=== PATIENT | female | born 1960 | race Caucasian/White ===

== ENCOUNTER → 2023-05-03 07:57 | Outpatient (REF) | payer BC, SELFPAY | LOC: MRI 3T 07:57 | PROVIDERS: ATTENDING PHYSICIAN Obstetrics & Gynecology; FAMILY PHYSICIAN Internal Medicine | DX: N60.19 Diffuse cystic mastopathy of unspecified breast (principal); Z80.3 Family history of malignant neoplasm of breast | CPT/HCPCS: 77049; A9585 ==

== ENCOUNTER → 2023-09-29 06:58 | Outpatient (REF) | payer BC, SELFPAY | LOC: HWWDC 06:58 | PROVIDERS: ATTENDING PHYSICIAN Obstetrics & Gynecology; FAMILY PHYSICIAN Internal Medicine | DX: Z12.31 Encounter for screening mammogram for malignant neoplasm of breast (principal) | CPT/HCPCS: 77063; 77067 ==

== ENCOUNTER → 2023-12-28 10:47 | Outpatient (REF) | payer BC, SELFPAY | LOC: HWRAD 10:47 | PROVIDERS: ATTENDING PHYSICIAN Hospitalist; FAMILY PHYSICIAN Internal Medicine | DX: R19.09 Other intra-abdominal and pelvic swelling, mass and lump (principal) | CPT/HCPCS: 76882 ==

== ENCOUNTER 2024-04-26 06:19 | Day surgery (SDC) | payer BC, SELFPAY | END 2024-04-26 12:58 | disposition home or self-care (01) | LOC: GI 06:19 | PROVIDERS: ATTENDING PHYSICIAN Internal Medicine Gastroenterology; FAMILY PHYSICIAN Internal Medicine | DX: Z12.11 Encounter for screening for malignant neoplasm of colon (principal); K64.0 First degree hemorrhoids; Z86.0100 Personal history of colon polyps, unspecified | CPT/HCPCS: G0105 ==

== ENCOUNTER 2024-05-25 06:19 | Day surgery (SDC) | payer BC, SELFPAY ==
[2024-05-09 14:04] VITALS: BMI 24.1
[2024-05-25] VITALS (7 sets, daily range): BP systolic 108–128; BP diastolic 55–70; BMI 24.1
[2024-05-25] MEDS: NORMOSOL-R/PLASMALYTE-A 1000 IV (07:52)
[2024-05-25] MEDS: TYLENOL 1000 MG PO (07:55)
--- NOTE | 2024-05-25 08:24 | HP.FOC2 ---
Focused History & Physical
Chief Complaint
HPI:
Chief Complaint: Right inguinal hernia
HPI / Indication for Planned Procedure: This is a 64-year-old female with history of endometriosis and diagnostic laparoscopy who presents with a symptomatic right inguinal hernia. Will plan for a robotic right inguinal hernia repair with mesh.
Relevant Past Medical History: Other (Endometriosis, hypothyroidism)
Relevant Social History: Negative
Relevant Family History: Negative
Relevant Past Surgical History: Positive for (Diagnostic laparoscopy for endometriosis)
Review of Systems
Review of Pertinent Systems: All Systems Negative
Medication
See Medication form for detailed medications: Yes
Medication List (including Herbals & OTC):
diphenhydramine 25 mg-acetaminophen 500 mg tablet (Tylenol PM Extra Strength) 1 tab PO HS PRN Pain, Insomnia 05/18/24
levothyroxine 25 mcg tablet 25 mcg PO DAILY 05/18/24
Medications Reviewed: Yes
Allergies and Reactions
Patient has Allergies: No
Noted Allergies and Reactions:
Allergy/AdvReac Type Severity Reaction Status Date / Time
No Known Allergies Allergy Verified 05/25/24 07:24
Pertinent Physical Exam
All Other Systems: Negative
Head/Neck: Normal
Diagnosis / Assessment
This is a 64-year-old female with history of endometriosis and diagnostic laparoscopy who presents with a symptomatic right inguinal hernia.
Plan / Procedure
Will plan for a robotic right inguinal hernia repair with mesh.
Anesthesia/Sedation to be done by Anesthesia Provider: Yes
--- NOTE | 2024-05-25 08:25 | W.SUR.PREOP ---
Pre-Operative Surgical Note
-
I have examined this patient prior to the performance of the scheduled procedure.
The patient's condition is unchanged from the time of the current History and
Physical and the patient is able to undergo the scheduled procedure.
--- NOTE | 2024-05-25 10:54 | W.IMMPOSTOP ---
Surgical Immed Post Op Note
-
Primary Surgeon: Dung Treadwell MD
Assisting Surgeon: None
Pre-op Diagnosis: Right inguinal hernia
Post-op Diagnosis: Bilateral inguinal hernias
Procedure Performed: Robotic bilateral inguinal hernia repair with mesh (ABRAHAM approach)
Anesthesia Type: General
Specimen / Cultures: None
Estimated Blood Loss: 3 cc
Complications: None
Operative Findings: Bilateral indirect inguinal hernias as well as bilateral small femoral hernia defects. The round ligaments were divided at the level of the peritoneal reflection bilaterally. After achieving the critical view of the MPO, both
spaces were reinforced with large Bard 3D max uncoated polypropylene mesh.
--- NOTE | 2024-05-25 10:57 | OR.RPT ---
Operative Report
Operative Report
Patient Name: Geeta Ceron
: 1960
Date of Operation: 05/25/2024
Preoperative Diagnosis: Reducible Inguinal hernia, right
Postoperative Diagnosis: Bilateral reducible inguinal hernias
Procedure(s):
Robotic bilateral inguinal Hernia Repair with mesh, (ABRAHAM approach)
Surgeon(s):
Dr. Treadwell
Golf Caddy(s):
ANALY Sam
Anesthesia: General
Estimated Blood Loss: 3 cc
Urine Output: None
Drains/Lines/Implants: Large 3D Max Bard mid weight uncoated polypropylene mesh x 2
Specimens: None
Indication for surgery: The patient has a history of groin pain and noted on exam to have a right inguinal Hernia. Following review of therapeutic options they have elected to undergo a minimally invasive repair.
Operative Findings: Bilateral indirect inguinal hernias as well as bilateral small femoral hernia defects. The round ligaments were divided at the level of the peritoneal reflection bilaterally. After achieving the critical view of the MPO, both
spaces were reinforced with large Bard 3D max uncoated polypropylene mesh.
Details of the operation:
The patient was brought to the Operating Room and placed in the supine position with the arms tucked. IV antibiotics were infused and Venodyne stockings placed. Following uneventful induction of general endotracheal anesthesia, an orogastric tube
was placed. The abdomen was prepped and draped in the usual sterile fashion. The abdomen was entered using a Veress technique which required 1 pass, pneumoperitoneum to 15 mmHg was obtained without difficulty. An 8mm trochar was passed through the
abdominal wall roughly 20 cm cephalad to the inguinal canal. We then confirmed that no inadvertent injury was made while passing the trocar or Veress needle. We then placed two additional 8 mm ports in the left upper and right upper quadrants. We
then docked the robot with a Prograsper in the left hand port and monopolar scissors in the right. Bilateral indirect inguinal defects were identified immediately. We then began by creating a flap at the level of the ASIS laterally on the right
side working our way medially to the medial umbilical fold. Staying onto the peritoneum we were able to circumferentially dissect around the hernia sac and and peel it off of the underlying tissues. The round ligament was identified, isolated and
ligated at the level of the peritoneum between 2 Weck clips and divided. Medially we identified the midline pubis as well as Hussein's ligament and ensured to dissect 2 cm below the pubic rim over the bladder. After exposure of the entire
myopectineal orifice we identified and reduced: A small sized indirect inguinal hernia, no direct inguinal hernia, and a small femoral hernia, there were no cord lipomas. We then repeated the same dissection on the left side and once again found a
small sized indirect defect, no direct defect, and a small femoral hernia. Again there were no cord lipomas on the side.
We then fixated two large 3D max meshes with a 2-0 Vicryl stitch at coopers medially, superior medially and superior laterally. The flaps were then closed with a running 2-0 barbed monocryl suture ensuring that the tail was cut flush with the
medial fat pad so that no barbs were exposed. During the closure of the flap an Angiocath was inserted and 20 cc of quarter percent Marcaine was instilled. The area in the flap cavity was then evacuated of air confirming that the mesh was flush
and there were no folds. All needles and instruments were then removed and the robot was undocked. The abdomen was then desufflated, and pneumoperitoneum evacuated. All skin sites were then closed with 4-0 Monocryl followed by Dermabond. Counts
were correct and overall, the patient tolerated the procedure well and was taken to the Recovery Room postoperatively in stable condition.
I was the attending physician and performed the procedure with assistance of the WINE BLENDER above. I was present for all portions of the case
Dung Treadwell MD
== END 2024-05-25 11:56 | disposition home or self-care (01) ==
LOC: SDS 06:19
PROVIDERS: ATTENDING PHYSICIAN Surgery; FAMILY PHYSICIAN Internal Medicine
DX: K40.20 Bilateral inguinal hernia, without obstruction or gangrene, not specified as recurrent (principal); K41.20 Bilateral femoral hernia, without obstruction or gangrene, not specified as recurrent
CPT/HCPCS: 49650; 36415; 93005; C1781

== ENCOUNTER → 2024-05-29 13:14 | Outpatient (REF) | payer BC, SELFPAY | LOC: MRI 3T 13:14 | PROVIDERS: ATTENDING PHYSICIAN Obstetrics & Gynecology; FAMILY PHYSICIAN Internal Medicine | DX: R92.333 Mammographic heterogeneous density, bilateral breasts (principal); Z80.3 Family history of malignant neoplasm of breast | CPT/HCPCS: 77049 ==

== ENCOUNTER → 2024-09-29 07:01 | Outpatient (REF) | payer BC, SELFPAY | LOC: HWWDC 07:01 | PROVIDERS: ATTENDING PHYSICIAN Obstetrics & Gynecology; FAMILY PHYSICIAN Internal Medicine | DX: Z12.31 Encounter for screening mammogram for malignant neoplasm of breast (principal) | CPT/HCPCS: 77063; 77067 ==